=== PATIENT | female | born 1950 | race Caucasian/White ===

== ENCOUNTER → 2017-01-04 | Outpatient (CLI) | payer MEDICARE ==
--- NOTE | 2017-01-04 18:11 | CT ---
EXAMINATION TYPE: CT angio chest DATE OF EXAM: 01/04/2017 6:02 PM COMPARISON: NONE HISTORY: sob, pneumonia X 6 weeks, elevated d-dimer CT DLP: 544.0 mGycm Automated exposure control for dose reduction was used. CONTRAST: CTA scan of the thorax is performed with IV Contrast, patient injected with 60 mL of Visipaque 320, p ulmonary embolism protocol. There are 3-D post processed images.. FINDINGS: The lungs are clear of consolidation. There is no pleural effusion. There is no pericardial effusion. Heart size is normal. There is no sign of aortic aneurysm or dissection. There is no mediastinal vaishnavi nopathy. There are no hilar masses. I see no filling defects in the pulmonary arteries. There is mild subsegmental patchy atelectasis in both lungs. There is no evidence of a pulmonary mass. There is thoracic kyphotic deformity with anter ior spurring in the midthoracic spine. IMPRESSION: NO EVIDENCE OF PULMONARY EMBOLISM. SPONDYLOTIC CHANGES IN THE THORACIC SPINE. PATCHY BILATERAL SUBSEGMENTAL ATELECTASIS IN THE LUNGS. THERE are two 2.5 CM HYPODENSE AREAS IN THE ANTERIOR LEFT LOBE OF THE LIVER. THIS IS CONSISTENT WITH CYSTS AND APPEAR SMALLER THAN THE OLD CT SCAN OF 05/07/2011.
== END ==
LOC: RADCTMAIN 17:03
PROVIDERS: ATTEND Family Medicine
DX: R79.1 Abnormal coagulation profile (principal); M47.894 Other spondylosis, thoracic region; K76.89 Other specified diseases of liver
CPT/HCPCS: 71275; Q9967

== ENCOUNTER → 2017-01-26 | Outpatient (CLI) | payer MEDICARE ==
[~2017-01-26] MED LIST: DOBUTamine DRIP for NUC MED 500 MG in DEXTROSE/WATER 1 250ML.BAG IV ONE
--- NOTE | 2017-01-26 11:27 | ECHOS ---
DATE OF SERVICE: 01/26/2017 AGE: 66Y SEX: F HT: 65 WT: 205 lbs. Protocol Brian: Others: Dobutamine Stress Echo Stage: Dur. of Exercise: *Heart Rate Blood Pressure *Rest: 84 Rest: 112/48 * *Max. Achieved: 139 Maximum BP: 218/53 85% PMHR: 131 100% PMHR: 154 *METS: INDICATIONS: Chest pain. MEDICATIONS: Baseline EKG revealed a normal sinus rhythm without significant ST-T changes. With dobutamine administration as per protocol, the heart rate went up to 139 beats, but by the time the echo was obtained, the heart rate came back to 124 beats per minute. However, at the heart rate of 139 beats per minute, patient did not have any angina. There was no arrhythmia. EKG did not reveal any ST segment changes to indicate ischemia. By EKG criteria, this is an unremarkable dobutamine stress test. Baseline echo images reveal normal wall motion and wall thickening of all segments. With dobutamine administration as per protocol, there was progressive increase in left ventricular wall motion and wall thickening of all segments suggesting that there is no evidence of any stress-induced ischemia on this study. However, by the time echo images were obtained, heart rate was less than 85% of predicted maximal rate was around 124 beats per minute. FINAL IMPRESSION: 1. By EKG criteria, this is an unremarkable dobutamine stress test without any evidence of ischemia by EKG criteria. 2. Normal dobutamine stress echocardiogram. By the time, however, images were obtained, heart rate was less than 85%. However, there is no ischemia at the above-mentioned stress level.
== END | disposition home or self-care (01) ==
LOC: RADNMMAIN 09:15
PROVIDERS: ATTEND Family Medicine
DX: R94.31 Abnormal electrocardiogram [ECG] [EKG] (principal)
CPT/HCPCS: 93017; 93350; J1250

== ENCOUNTER → 2017-10-04 | Outpatient (CLI) | payer MEDICARE ==
--- NOTE | 2017-10-04 16:22 | US ---
EXAMINATION TYPE: US renals and bladder DATE OF EXAM: 10/04/2017 COMPARISON: CT CLINICAL HISTORY: R94.4 Abnormal renal function test. Abnormal labs EXAM MEASUREMENTS: Right Kidney: 12.1 x 5.3 x 5.7 cm Left Kidney: 10.8 x 5.5 x 4.9 cm Right Kidney: No evidence of hydro, Cyst lateral= 8.3 x 6.3 x 8.2 cm Left Kidney: Cortical thinning, cyst lateral= 2.8 x 3.0 x 3.0 cm Bladder: wnl Bilateral Jets seen: No There is no evidence for hydronephrosis at this point in time. No nephrolithiasis is seen. No solid masses are identified. The urinary bladder is anechoic. Bilateral ureteral jets are seen. IMPRESSION: 1. Renal parenchymal thinning. 2. Simple renal cysts noted bilaterally.
[2017-10-04 17:04] LABS: Basophils % (A) 0 %; Eosinophils # (A) 0.3 k/uL (0-0.7); Eosinophils % (A) 3 %; HGB 12.1 gm/dL (11.4-16.0); Lymphocytes # (A) 2.4 k/uL (1.0-4.8); Lymphocytes % (A) 25 %; MCH 28.7 pg (25.0-35.0); MCHC 31.9 g/dL (31.0-37.0); Mean Platelet Volume 6.6; Monocytes # (A) 0.4 k/uL (0-1.0); Monocytes % (A) 4 %; Neutrophils # (A) 6.3 k/uL (1.3-7.7); Neutrophils % (A) 66 %; Platelet Count 244 k/uL (150-450); RBC 4.22 m/uL (3.80-5.40); RDW 13.3 % (11.5-15.5); WBC 9.5 k/uL (3.8-10.6)
[2017-10-04 17:15] LABS: Appearance,Urine Clear (Clear); Bilirubin,Urine Negative (Negative); Blood,Urine Negative (Negative); Color,Urine Colorless; Glucose,Urine (UA) Negative (Negative); Ketones,Urine Negative (Negative); Leukocyte Esterase,Urine Negative (Negative); Nitrite,Urine Negative (Negative); Protein,Urine Negative (Negative); Specific Gravity,Urine 1.003 (1.001-1.035); Urobilinogen,Urine <2.0 mg/dL (<2.0)
== END | disposition home or self-care (01) ==
LOC: RADUSMAIN 15:52
PROVIDERS: ATTEND Family Medicine
DX: N28.1 Cyst of kidney, acquired (principal); R93.429 Abnormal radiologic findings on diagnostic imaging of unspecified kidney
CPT/HCPCS: 36415; 76770; 81003; 84100; 85025

== ENCOUNTER → 2017-10-28 | Outpatient (CLI) | payer MEDICARE ==
[2017-10-28 12:25] LABS: Basophils # (A) 0.1 k/uL (0-0.2); Basophils % (A) 0 %; Eosinophils # (A) 0.4 k/uL (0-0.7); Eosinophils % (A) 4 %; HCT 38.3 % (34.0-46.0); HGB 11.7 gm/dL (11.4-16.0); Hypochromasia Slight; Lymphocytes # (A) 2.2 k/uL (1.0-4.8); Lymphocytes % (A) 21 %; MCH 27.9 pg (25.0-35.0); MCHC 30.6 g/dL (31.0-37.0); MCV 91.4 fL (80.0-100.0); Mean Platelet Volume 6.7; Monocytes # (A) 0.4 k/uL (0-1.0); Monocytes % (A) 4 %; Neutrophils # (A) 7.5 k/uL (1.3-7.7); Neutrophils % (A) 70 %; Platelet Count 325 k/uL (150-450); RBC 4.19 m/uL (3.80-5.40); RDW 13.5 % (11.5-15.5); WBC 10.7 k/uL (3.8-10.6)
[2017-10-28 12:29] LABS: Appearance,Urine Clear (Clear); Bilirubin,Urine Negative (Negative); Blood,Urine Negative (Negative); Color,Urine Yellow; Glucose,Urine (UA) Negative (Negative); Ketones,Urine Negative (Negative); Leukocyte Esterase,Urine Moderate (Negative); Mucus,Urine Rare /hpf; Nitrite,Urine Negative (Negative); Protein,Urine Negative (Negative); Specific Gravity,Urine 1.015 (1.001-1.035); Squamous Epithelial Cell,Urine 1 /hpf (0-4); Urobilinogen,Urine <2.0 mg/dL (<2.0); WBC,Urine 10 /hpf (0-5)
[2017-10-28 12:49] LABS: Phosphorus 3.8 mg/dL (2.5-4.5); Potassium 4.9 mmol/L (3.5-5.1); Uric Acid 6.6 mg/dL (3.7-7.4)
[2017-10-28 14:06] LABS: Albumin 4.1 g/dL (3.5-5.0)
[2017-10-28 18:46] LABS: Iron Saturation 15.32 (12.00-45.00); Protein, Total 7.1 g/dL (6.2-8.2)
[2017-10-28 18:55] LABS: Vitamin D 25 Hydroxy 43.1 ng/mL (30.0-100.0)
[2017-10-28 20:41] LABS: Parathyroid Hormone Intact 126.9 pg/mL (14.0-72.0)
== END | disposition home or self-care (01) ==
LOC: LABWHC1 11:44
PROVIDERS: ATTEND Internal Medicine Nephrology
DX: N18.3 Chronic kidney disease, stage 3 (moderate) (principal); D64.9 Anemia, unspecified; E55.9 Vitamin D deficiency, unspecified; E21.3 Hyperparathyroidism, unspecified; M10.9 Gout, unspecified; N39.0 Urinary tract infection, site not specified
CPT/HCPCS: 36415; 80048; 81001; 82040; 82306; 82728; 83540; 83550; 83735; 83970; 84100; 84165; 84550; 85025; 86335

== ENCOUNTER → 2018-01-25 | Outpatient (CLI) | payer MEDICARE ==
[2018-01-25 13:39] LABS: Appearance,Urine Clear (Clear); Bilirubin,Urine Negative (Negative); Blood,Urine Negative (Negative); Color,Urine Yellow; Glucose,Urine (UA) Negative (Negative); Ketones,Urine Negative (Negative); Leukocyte Esterase,Urine Moderate (Negative); Mucus,Urine Rare /hpf; Nitrite,Urine Negative (Negative); Protein,Urine Negative (Negative); RBC,Urine 2 /hpf (0-5); Specific Gravity,Urine 1.018 (1.001-1.035); Squamous Epithelial Cell,Urine 1 /hpf (0-4); Urobilinogen,Urine <2.0 mg/dL (<2.0); WBC,Urine 25 /hpf (0-5)
[2018-01-25 13:40] LABS: Basophils % (A) 1 %; Eosinophils # (A) 0.4 k/uL (0-0.7); Eosinophils % (A) 4 %; HCT 36.4 % (34.0-46.0); HGB 11.6 gm/dL (11.4-16.0); Lymphocytes # (A) 2.2 k/uL (1.0-4.8); Lymphocytes % (A) 25 %; MCH 27.9 pg (25.0-35.0); MCV 87.3 fL (80.0-100.0); Mean Platelet Volume 6.7; Monocytes # (A) 0.3 k/uL (0-1.0); Monocytes % (A) 4 %; Neutrophils # (A) 5.6 k/uL (1.3-7.7); Neutrophils % (A) 64 %; Platelet Count 252 k/uL (150-450); RBC 4.17 m/uL (3.80-5.40); WBC 8.8 k/uL (3.8-10.6)
[2018-01-25 13:53] LABS: Calcium 9.7 mg/dL (8.4-10.2); Potassium 4.7 mmol/L (3.5-5.1); Uric Acid 6.9 mg/dL (3.7-7.4)
[2018-01-25 18:32] LABS: Iron Saturation 11.34 (12.00-45.00)
[2018-01-25 18:40] LABS: Vitamin D 25 Hydroxy 46.7 ng/mL (30.0-100.0)
[2018-01-25 19:22] LABS: Parathyroid Hormone Intact 112.8 pg/mL (14.0-72.0)
== END | disposition home or self-care (01) ==
LOC: LABWHC1 13:03
PROVIDERS: ATTEND Nurse Practitioner Family
DX: E55.9 Vitamin D deficiency, unspecified (principal); M10.9 Gout, unspecified; D63.1 Anemia in chronic kidney disease; N18.3 Chronic kidney disease, stage 3 (moderate)
CPT/HCPCS: 36415; 80048; 81001; 82306; 82728; 83540; 83550; 83970; 84550; 85025

== ENCOUNTER → 2018-02-24 | Outpatient (CLI) | payer MEDICARE ==
[2018-02-24 11:34] LABS: Basophils % (A) 0 %; Eosinophils # (A) 0.5 k/uL (0-0.7); Eosinophils % (A) 5 %; HGB 12.6 gm/dL (11.4-16.0); Lymphocytes # (A) 2.3 k/uL (1.0-4.8); Lymphocytes % (A) 23 %; MCH 27.3 pg (25.0-35.0); MCHC 31.5 g/dL (31.0-37.0); MCV 86.7 fL (80.0-100.0); Mean Platelet Volume 6.7; Monocytes # (A) 0.4 k/uL (0-1.0); Monocytes % (A) 4 %; Neutrophils # (A) 6.5 k/uL (1.3-7.7); Neutrophils % (A) 67 %; Platelet Count 277 k/uL (150-450); RBC 4.61 m/uL (3.80-5.40); RDW 14.8 % (11.5-15.5); WBC 9.8 k/uL (3.8-10.6)
[2018-02-24 11:51] LABS: Albumin 4.1 g/dL (3.5-5.0); Bilirubin, Delta 0.3 mg/dL (0.0-0.2); Calcium 9.9 mg/dL (8.4-10.2); Potassium 4.7 mmol/L (3.5-5.1); Total Bilirubin 0.3 mg/dL (0.2-1.3); Total Protein 7.1 g/dL (6.3-8.2)
[2018-02-24 12:08] LABS: T4, Free (Free Thyroxine) 1.34 ng/dL (0.78-2.19)
== END | disposition home or self-care (01) ==
LOC: LABWHC1 10:53
PROVIDERS: ATTEND Nurse Practitioner Family
DX: E11.9 Type 2 diabetes mellitus without complications (principal); E03.9 Hypothyroidism, unspecified; E78.2 Mixed hyperlipidemia; N18.3 Chronic kidney disease, stage 3 (moderate); I12.9 Hypertensive chronic kidney disease with stage 1 through stage 4 chronic kidney disease, or unspecified chronic kidney disease
CPT/HCPCS: 36415; 80048; 80061; 80076; 84439; 84443; 85025

== ENCOUNTER → 2018-04-19 | Outpatient (CLI) | payer MEDICARE ==
--- NOTE | 2018-04-21 10:34 | MM ---
Reason for exam: screening (asymptomatic). Last mammogram was performed 1 year and 7 months ago. History: Patient is postmenopausal and had first child after 30. Family history of breast cancer in maternal grandmother at age 82. Took hormonal contraceptives for 13 years beginning at age 20. Took estrogen for 16 years 3 months beginning at age 42. Took progesterone for 16 years 3 months beginning at age 42. Physical Findings: A clinical breast exam by your physician is recommended on an annual basis and results should be correlated with mammographic findings. MG 3D Screening Mammo W/Cad Bilateral CC and MLO view(s) were taken. Prior study comparison: September 18, 2016, bilateral MG 3d screening mammo w/cad. September 16, 2015, bilateral MG 3d screening mammo w/cad. There are scattered fibroglandular densities. Benign appearing round bilateral calcifications. There is no discrete abnormality. ASSESSMENT: Benign, BI-RAD 2 RECOMMENDATION: Routine screening mammogram of both breasts in 1 year.
== END | disposition home or self-care (01) ==
LOC: RADMAMWWP 11:02
PROVIDERS: ATTEND Family Medicine
DX: Z12.31 Encounter for screening mammogram for malignant neoplasm of breast (principal)
CPT/HCPCS: 77063; 77067

== ENCOUNTER → 2018-04-27 | Outpatient (CLI) | payer MEDICARE ==
[2018-04-27 14:37] LABS: Appearance,Urine Clear (Clear); Bacteria,Urine Rare /hpf; Bilirubin,Urine Negative (Negative); Blood,Urine Negative (Negative); Color,Urine Yellow; Glucose,Urine (UA) Negative (Negative); Ketones,Urine Negative (Negative); Leukocyte Esterase,Urine Small (Negative); Mucus,Urine Rare /hpf; Nitrite,Urine Negative (Negative); PH, Urine 5.5 (5.0-8.0); Protein,Urine Negative (Negative); Specific Gravity,Urine 1.017 (1.001-1.035); Squamous Epithelial Cell,Urine <1 /hpf (0-4); Urobilinogen,Urine <2.0 mg/dL (<2.0); WBC,Urine 6 /hpf (0-5)
[2018-04-27 14:44] LABS: Basophils % (A) 0 %; Eosinophils # (A) 0.3 k/uL (0-0.7); Eosinophils % (A) 4 %; HCT 41.5 % (34.0-46.0); HGB 13.1 gm/dL (11.4-16.0); Lymphocytes # (A) 2.2 k/uL (1.0-4.8); Lymphocytes % (A) 24 %; MCH 28.9 pg (25.0-35.0); MCHC 31.6 g/dL (31.0-37.0); MCV 91.5 fL (80.0-100.0); Mean Platelet Volume 6.8; Monocytes # (A) 0.3 k/uL (0-1.0); Monocytes % (A) 3 %; Neutrophils % (A) 67 %; Platelet Count 265 k/uL (150-450); RBC 4.54 m/uL (3.80-5.40); RDW 14.5 % (11.5-15.5); WBC 8.9 k/uL (3.8-10.6)
[2018-04-27 15:09] LABS: Calcium 9.7 mg/dL (8.4-10.2); Potassium 4.2 mmol/L (3.5-5.1); Uric Acid 6.6 mg/dL (3.7-7.4)
[2018-04-27 19:13] LABS: Iron Saturation 24.15 (12.00-45.00)
[2018-04-27 19:21] LABS: Vitamin D 25 Hydroxy 54.4 ng/mL (30.0-100.0)
[2018-04-27 20:46] LABS: Parathyroid Hormone Intact 91.5 pg/mL (14.0-72.0)
== END | disposition home or self-care (01) ==
LOC: LABWHC1 13:30
PROVIDERS: ATTEND Nurse Practitioner Family
DX: N18.3 Chronic kidney disease, stage 3 (moderate) (principal); D63.1 Anemia in chronic kidney disease; E55.9 Vitamin D deficiency, unspecified; N25.81 Secondary hyperparathyroidism of renal origin; M10.9 Gout, unspecified; N39.0 Urinary tract infection, site not specified
CPT/HCPCS: 36415; 80048; 81001; 82306; 82728; 83540; 83550; 83970; 84550; 85025

== ENCOUNTER → 2018-06-08 | Outpatient (CLI) | payer MEDICARE ==
--- NOTE | 2018-06-08 11:20 | CT ---
EXAMINATION TYPE: CT abdomen pelvis wo con DATE OF EXAM: 06/08/2018 HISTORY: Left lower quadrant pain CT DLP: 1062 mGycm. Automated Exposure Control for Dose Reduction was Utilized. TECHNIQUE: CT scan of the abdomen and pelvis is performed without oral or IV contrast. COMPARISON: CT abdomen May 07, 2011 FINDINGS: Within the limitations of a non-contrast study, the following observations are made. LUNG BASES: Trace pericardial effusion anteriorly inferiorly is redemonstrated. LIVER/GB: Liver is heterogeneously hypodense consistent with diffuse fatty infiltration. A few simple appearing thin-walled cyst in the left hepatic lobe are redemonstrated. PANCREAS: No significant abnormality is seen. SPLEEN: No significant abnormality is seen. ADRENALS: Slight thickening to left adrenal gland which may reflect benign hyperplasia is unchanged f rom prior study. KIDNEYS: There is cortical thinning in both kidneys with a few scattered simple appearing cysts bilat erally. There is a dominant 7.6 cm simple appearing cyst right kidney mid pole level redemonstrated i ncreased in size from prior. BOWEL: Low-lying cecum into right pelvis is present. Normal-appearing appendix is seen from cecum. No suspicious small or large bowel dilatation. A few colonic diverticula are present. There is no CT ev idence for acute diverticulitis. Evaluation slightly suboptimal secondary to lack of enteric contrast . There is poorly distended left and sigmoid colon making evaluation at this level suboptimal. Stable small hiatal hernia is noted. GENITAL ORGANS: Uterus is surgically absent or markedly atrophic LYMPH NODES: No greater than 1cm abdominal or pelvic lymph nodes are appreciated. OSSEOUS STRUCTURES: Multilevel facet arthropathy mid to lower lumbar spine is present. There is moder ate to advanced disc space narrowing and vacuum disc phenomenon at lumbosacral junction. There is mul tilevel disc space narrowing and spurring in the mid to lower thoracic spine. OTHER: Stable small fat-containing umbilical hernia is present. IMPRESSION: No CT evidence for acute diverticulitis. No suspicious acute finding is seen to account f or patient's symptoms. Results communicated to ordering physician assistant teacher primary office via telephone at time of dictation.
== END ==
LOC: RADCTMAIN 10:14
PROVIDERS: ATTEND Nurse Practitioner Adult Health
DX: K57.90 Diverticulosis of intestine, part unspecified, without perforation or abscess without bleeding (principal)
CPT/HCPCS: 74176

== ENCOUNTER → 2018-07-26 | Outpatient (CLI) | payer MEDICARE ==
[2018-07-26 12:55] LABS: Basophils % (A) 0 %; Eosinophils # (A) 0.3 k/uL (0-0.7); Eosinophils % (A) 4 %; HCT 41.4 % (34.0-46.0); HGB 13.1 gm/dL (11.4-16.0); Lymphocytes # (A) 1.7 k/uL (1.0-4.8); Lymphocytes % (A) 22 %; MCH 28.5 pg (25.0-35.0); MCHC 31.6 g/dL (31.0-37.0); MCV 90.4 fL (80.0-100.0); Mean Platelet Volume 6.5; Monocytes # (A) 0.3 k/uL (0-1.0); Monocytes % (A) 4 %; Neutrophils # (A) 5.3 k/uL (1.3-7.7); Neutrophils % (A) 69 %; Platelet Count 241 k/uL (150-450); RBC 4.58 m/uL (3.80-5.40); RDW 13.3 % (11.5-15.5); WBC 7.7 k/uL (3.8-10.6)
[2018-07-26 13:15] LABS: Appearance,Urine Clear (Clear); Bilirubin,Urine Negative (Negative); Blood,Urine Negative (Negative); Color,Urine Light Yellow; Glucose,Urine (UA) Negative (Negative); Ketones,Urine Negative (Negative); Leukocyte Esterase,Urine Trace (Negative); Nitrite,Urine Negative (Negative); PH, Urine 6.5 (5.0-8.0); Protein,Urine Negative (Negative); RBC,Urine <1 /hpf (0-5); Specific Gravity,Urine 1.009 (1.001-1.035); Squamous Epithelial Cell,Urine 1 /hpf (0-4); Urobilinogen,Urine <2.0 mg/dL (<2.0)
[2018-07-26 18:54] LABS: Iron Saturation 27.69 (12.00-45.00)
[2018-07-26 19:03] LABS: Vitamin D 25 Hydroxy 47.4 ng/mL (30.0-100.0)
[2018-07-26 20:53] LABS: Parathyroid Hormone Intact 86.9 pg/mL (14.0-72.0)
[2018-07-26 21:38] LABS: Anion Gap 11.2 mmol/L (4.00-12.00); Calcium 9.4 mg/dL (8.7-10.3); Carbon Dioxide 24.8 mmol/L (21.6-31.8); LDL Cholesterol,Calculated 85.2 mg/dL (0.0-131.0); Potassium 4.4 mmol/L (3.5-5.5); VLDL Calculation 28.8 mg/dL (5.00-40.00)
== END | disposition home or self-care (01) ==
LOC: LABWHC1 10:55
PROVIDERS: ATTEND Nurse Practitioner Family
DX: N18.3 Chronic kidney disease, stage 3 (moderate) (principal); D64.9 Anemia, unspecified; E55.9 Vitamin D deficiency, unspecified; N25.81 Secondary hyperparathyroidism of renal origin; M10.9 Gout, unspecified; N39.0 Urinary tract infection, site not specified; E78.5 Hyperlipidemia, unspecified
CPT/HCPCS: 36415; 80048; 80061; 81001; 82306; 82728; 83540; 83550; 83970; 84550; 85025

== ENCOUNTER → 2019-10-04 | Outpatient (CLI) | payer MEDICARE ==
[2019-10-04 11:22] LABS: Basophils % (A) 0 %; Eosinophils # (A) 0.3 k/uL (0-0.7); Eosinophils % (A) 4 %; HCT 40.2 % (34.0-46.0); HGB 13.1 gm/dL (11.4-16.0); Lymphocytes # (A) 1.2 k/uL (1.0-4.8); Lymphocytes % (A) 16 %; MCH 29.9 pg (25.0-35.0); MCHC 32.7 g/dL (31.0-37.0); MCV 91.5 fL (80.0-100.0); Mean Platelet Volume 6.9; Monocytes # (A) 0.3 k/uL (0-1.0); Monocytes % (A) 3 %; Neutrophils # (A) 5.5 k/uL (1.3-7.7); Neutrophils % (A) 75 %; Platelet Count 253 k/uL (150-450); RBC 4.39 m/uL (3.80-5.40); RDW 12.9 % (11.5-15.5); WBC 7.3 k/uL (3.8-10.6)
[2019-10-04 13:25] LABS: Albumin 4.1 g/dL (3.5-5.0); Calcium 9.6 mg/dL (8.4-10.2); Potassium 4.9 mmol/L (3.5-5.1); Total Bilirubin 0.5 mg/dL (0.2-1.3); Total Protein 6.9 g/dL (6.3-8.2)
[2019-10-04 13:42] LABS: T4, Free (Free Thyroxine) 1.41 ng/dL (0.78-2.19)
[2019-10-04 17:56] LABS: Hemoglobin A1C 5.8 % (4.0-6.0)
--- NOTE | 2019-10-05 14:27 | MM ---
Reason for exam: screening (asymptomatic). Last mammogram was performed 1 year and 5 months ago. History: Patient is postmenopausal and had first child after 30. Family history of breast cancer in maternal grandmother at age 82. Took hormonal contraceptives for 13 years beginning at age 20. Took estrogen for 16 years 3 months beginning at age 42. Took progesterone for 16 years 3 months beginning at age 42. Physical Findings: A clinical breast exam by your physician is recommended on an annual basis and results should be correlated with mammographic findings. MG 3D Screening Mammo W/Cad Bilateral CC and MLO view(s) were taken. XCCL view(s) were taken of the right breast. Prior study comparison: April 19, 2018, bilateral MG 3d screening mammo w/cad. September 18, 2016, bilateral MG 3d screening mammo w/cad. There are scattered fibroglandular densities. No suspicious abnormality. No significant changes when compared with prior studies. ASSESSMENT: Negative, BI-RAD 1 RECOMMENDATION: Routine screening mammogram of both breasts in 1 year.
== END | disposition home or self-care (01) ==
LOC: RADMAMWWP 09:54
PROVIDERS: ATTEND Nurse Practitioner Adult Health
DX: Z12.31 Encounter for screening mammogram for malignant neoplasm of breast (principal); I10 Essential (primary) hypertension; E03.9 Hypothyroidism, unspecified; M25.50 Pain in unspecified joint
CPT/HCPCS: 77063; 77067; 80053; 80061; 83036; 84439; 84443; 84481; 85025; 85652; 86140

== ENCOUNTER → 2020-11-14 | Outpatient (CLI) | payer MEDICARE ==
--- NOTE | 2020-11-15 13:58 | MM ---
Reason for exam: screening (asymptomatic). Last mammogram was performed 1 year and 1 month ago. History: Patient is postmenopausal and had first child after 30. Family history of breast cancer in maternal grandmother at age 82. Took hormonal contraceptives for 13 years beginning at age 20. Took estrogen for 16 years 3 months beginning at age 42. Took progesterone for 16 years 3 months beginning at age 42. Physical Findings: A clinical breast exam by your physician is recommended on an annual basis and results should be correlated with mammographic findings. MG 3D Screening Mammo W/Cad Bilateral CC and MLO view(s) were taken. Prior study comparison: October 04, 2019, bilateral MG 3d screening mammo w/cad. April 19, 2018, bilateral MG 3d screening mammo w/cad. There are scattered fibroglandular densities. There is no discrete abnormality. No significant changes when compared with prior studies. ASSESSMENT: Negative, BI-RAD 1 RECOMMENDATION: Routine screening mammogram of both breasts in 1 year.
== END | disposition home or self-care (01) ==
LOC: RADMAMWWP 10:49
PROVIDERS: ATTEND Family Medicine
DX: Z12.31 Encounter for screening mammogram for malignant neoplasm of breast (principal)
CPT/HCPCS: 77063; 77067

== ENCOUNTER → 2021-12-02 | Outpatient (CLI) | payer MEDICARE ==
--- NOTE | 2021-12-02 12:04 | CT ---
EXAMINATION TYPE: CT brain wo con DATE OF EXAM: 12/02/2021 COMPARISON: None HISTORY: [id number] female R41.0, Acute confusion TECHNIQUE: Examination was done in axial plane without intravenous contrast. Coronal and sagittal r econstructions performed. CT DLP: 981.7 mGycm Automated exposure control for dose reduction was used. FINDINGS: There is no evidence of acute intracranial hemorrhage, acute ischemic changes, mass, mass-effect, or extra-axial fluid collection. There is no effacement of cerebral sulci or basal subarachnoid cister ns. There is no hydrocephalus. There is no midline shift. Padilla-white matter distinction is preserv ed. Mild patchy periventricular white matter hypodensity. Paranasal sinuses and mastoid air cells well pneumatized. Orbits and globes are intact. IMPRESSION: No acute intracranial abnormality seen. A mild patchy changes of chronic small vessel ischemic diseas e.
[2021-12-02 12:49] LABS: Basophils % (A) 0 %; Eosinophils # (A) 0.1 k/uL (0-0.7); Eosinophils % (A) 1 %; HCT 44.2 % (34.0-46.0); Lymphocytes # (A) 0.9 k/uL (1.0-4.8); Lymphocytes % (A) 9 %; MCH 30.4 pg (25.0-35.0); MCHC 31.6 g/dL (31.0-37.0); MCV 96.2 fL (80.0-100.0); Mean Platelet Volume 7.2; Monocytes # (A) 0.3 k/uL (0-1.0); Monocytes % (A) 4 %; Neutrophils # (A) 8.4 k/uL (1.3-7.7); Neutrophils % (A) 86 %; Platelet Count 209 k/uL (150-450); RBC 4.59 m/uL (3.80-5.40); RDW 13.4 % (11.5-15.5); WBC 9.8 k/uL (3.8-10.6)
[2021-12-02 13:11] LABS: ALT 21 U/L (4-34); AST 28 U/L (14-36); African American GFR (CKD) 46 (>60 ml/min/1.73 sqM); Albumin 4.1 g/dL (3.5-5.0); Albumin/Globulin Ratio 1.3; Alkaline Phosphatase 111 U/L (38-126); Anion Gap 6 mmol/L; Blood Urea Nitrogen 26 mg/dL (7-17); Calcium 9.6 mg/dL (8.4-10.2); Carbon Dioxide 26 mmol/L (22-30); Chloride 106 mmol/L (98-107); Globulin 3.1 g/dL; Glucose 113 mg/dL (74-99); Non-African American GFR(CKD) 40 (>60 ml/min/1.73 sqM); Potassium 4.2 mmol/L (3.5-5.1); Sodium 138 mmol/L (137-145); Total Bilirubin 0.5 mg/dL (0.2-1.3); Total Protein 7.2 g/dL (6.3-8.2)
[2021-12-02 13:32] LABS: Creatine Kinase MB 1.6 ng/mL (0.0-2.4); Troponin I <0.012 ng/mL (0.000-0.034)
== END | disposition home or self-care (01) ==
LOC: RADCTMAIN 11:33
PROVIDERS: ATTEND Family Medicine
DX: R41.0 Disorientation, unspecified (principal); R06.00 Dyspnea, unspecified; N25.81 Secondary hyperparathyroidism of renal origin; E03.9 Hypothyroidism, unspecified
CPT/HCPCS: 70450; 80053; 82553; 83036; 83880; 84439; 84443; 84484; 85025; 85379

== ENCOUNTER → 2021-12-11 | Outpatient (CLI) | payer MEDICARE ==
--- NOTE | 2021-12-11 10:28 | MR ---
EXAMINATION TYPE: MR brain wo/w con DATE OF EXAM: 12/11/2021 COMPARISON: 12/02/2021 CT brain HISTORY: other dissociative conversion disorders, memory loss TECHNIQUE: Multiplanar, multisequence images of the brain and brainstem is performed without and with IV contras t, utilizing 10 mL intravenous Gadavist . FINDINGS: Exam limited by motion artifact. Diffusion weighted images demonstrate no evidence of a recent infarct or other diffusion abnormality. There is no confluent and now multiple focal areas of abnormal signal the white matter which are no nspecific. Most likely in the bases remote ischemia. Faint areas of abnormal signal seen in the chaka are suggestive of remote ischemia. Mild generalized degenerative change. No enhancing mass or mass effect. No midline shift. Orbits are symmetric. Mild changes of chronic ethmoidal sinusitis. Craniocervical junction maintaine d. Sella turcica has a normal appearance. Midline structures demonstrate normal morphology. Post con trast images demonstrate no abnormal enhancement. The dural venous sinuses appear patent. The visuali zed sinuses are clear and the globes are intact. IMPRESSION: 1. Degenerative and nonspecific white matter changes most typical of remote ischemia. 2. faint abnormal signal the chaka suggestive of tiny areas of remote ischemia
== END | disposition home or self-care (01) ==
LOC: RADMRIMAIN 07:19
PROVIDERS: ATTEND Nurse Practitioner Adult Health
DX: F44.89 Other dissociative and conversion disorders (principal)
CPT/HCPCS: 70553; A9585

== ENCOUNTER → 2022-07-08 | Outpatient (CLI) | payer MEDICARE ==
--- NOTE | 2022-07-09 07:42 | MM ---
Reason for Exam: Screening (asymptomatic). Last mammogram was performed 1 year(s) and 8 month(s) ago. Patient History: Menarche at age 11. Patient has no children. Left ovary removed at age 42. Right ovary removed at age 42. Hysterectomy at age 42. Postmenopausal. Estrogen, starting at age 42 for 16 years, 3 months. Progesterone, starting at age 42 for 16 years, 3 months. Hormonal Contraceptives for 13 years from age 20 until age 32. Maternal grandmother had breast cancer, age 82. Risk Values: Kathie 5 year model risk: 2.1%. NCI Lifetime model risk: 5.6%. Prior Study Comparison: 04/19/2018 Bilateral Screening Mammogram, [facility]. 10/04/2019 Bilateral Screening Mammogram, [facility]. 11/14/2020 Bilateral Screening Mammogram, [facility]. Tissue Density: There are scattered fibroglandular densities. Findings: Analyzed By CAD. A few small scattered benign-appearing round and linear calcifications bilaterally are redemonstrated. Benign-appearing right axillary lymph nodes are again seen. There is no suspicious new group of microcalcifications or new suspicious mass in either breast. Overall Assessment: Benign, BI-RAD 2 Management: Screening Mammogram of both breasts in 1 year. A clinical breast exam by your physician is recommended on an annual basis and results should be correlated with mammographic findings. Electronically signed and approved by: Niels Sumner M.D.
--- NOTE | 2022-07-09 07:42 | MM ---
Reason for Exam: Screening (asymptomatic). Last mammogram was performed 1 year(s) and 8 month(s) ago. Patient History: Menarche at age 11. Patient has no children. Left ovary removed at age 42. Right ovary removed at age 42. Hysterectomy at age 42. Postmenopausal. Estrogen, starting at age 42 for 16 years, 3 months. Progesterone, starting at age 42 for 16 years, 3 months. Hormonal Contraceptives for 13 years from age 20 until age 32. Maternal grandmother had breast cancer, age 82. Risk Values: Kathie 5 year model risk: 2.1%. NCI Lifetime model risk: 5.6%. Prior Study Comparison: 04/19/2018 Bilateral Screening Mammogram, [facility]. 10/04/2019 Bilateral Screening Mammogram, [facility]. 11/14/2020 Bilateral Screening Mammogram, [facility]. Tissue Density: There are scattered fibroglandular densities. Findings: Analyzed By CAD. A few small scattered benign-appearing round and linear calcifications bilaterally are redemonstrated. Benign-appearing right axillary lymph nodes are again seen. There is no suspicious new group of microcalcifications or new suspicious mass in either breast. Overall Assessment: Benign, BI-RAD 2 Management: Screening Mammogram of both breasts in 1 year. A clinical breast exam by your physician is recommended on an annual basis and results should be correlated with mammographic findings. Electronically signed and approved by: Niels Sumner M.D.
== END | disposition home or self-care (01) ==
LOC: RADMAMWWP 10:59
PROVIDERS: ATTEND Family Medicine
DX: Z12.31 Encounter for screening mammogram for malignant neoplasm of breast (principal)
CPT/HCPCS: 77063; 77067

== ENCOUNTER → 2023-07-09 | Outpatient (CLI) | payer MEDICARE ==
--- NOTE | 2023-07-12 09:00 | MM ---
Reason for Exam: Screening (asymptomatic). Last screening mammogram was performed 12 month(s) ago. Patient History: Menarche at age 11. Patient has no children. Left ovary removed at age 42. Right ovary removed at age 42. Hysterectomy at age 42. Postmenopausal. Estrogen, starting at age 42 for 16 years, 3 months. Progesterone, starting at age 42 for 16 years, 3 months. Hormonal Contraceptives for 13 years from age 20 until age 32. Maternal grandmother had breast cancer, age 82. Risk Values: Kathie 5 year model risk: 2.2%. NCI Lifetime model risk: 5.3%. Prior Study Comparison: 10/04/2019 Bilateral Screening Mammogram, [facility]. 11/14/2020 Bilateral Screening Mammogram, [facility]. 07/08/2022 Bilateral MG 3D screening mammo w/cad, [facility]. Tissue Density: There are scattered fibroglandular densities. Findings: Analyzed By CAD. There is no suspicious group of microcalcifications or new suspicious mass. Benign-appearing calcifications bilaterally. Overall Assessment: Benign, BI-RAD 2 Management: Screening Mammogram of both breasts in [address] [facility] will attempt to contact patient to return for supplemental views and ultrasound if indicated. Patient should continue monthly self-breast exams. A clinical breast exam by your physician is recommended on an annual basis. This exam should not preclude additional follow-up of suspicious palpable abnormalities. Note on Kathie scores and lifetime risk: 1. A Kathie score greater than 3% is considered moderate risk. If this is the case, consider specialist referral to assess eligibility for a risk reducing agent. 2. If overall lifetime risk for the development of breast cancer is 20% or higher, the patient may qualify for future screening with alternating mammogram and breast MRI. Electronically signed and approved by: Jaylen Krishnamurthy DO
== END | disposition home or self-care (01) ==
LOC: RADMAMWWP 11:30
PROVIDERS: ATTEND Family Medicine
DX: Z12.31 Encounter for screening mammogram for malignant neoplasm of breast (principal); Z78.0 Asymptomatic menopausal state; Z80.3 Family history of malignant neoplasm of breast
CPT/HCPCS: 77063; 77067

== ENCOUNTER 2024-05-02 19:06 | Emergency (ER) | payer MEDICARE ==
--- NOTE | 2024-06-04 12:08 | US ---
Site ID [facility] Patient Palmira Flores ID [id number] Age/Gender: 73Y, F Order # N/A Procedure US venous doppler duplex LE RT Date 05/02/2024 8:48:00 PM EXAMINATION TYPE: US venous doppler duplex LE RT DATE OF EXAM: 05/16/2024 11:30 PM COMPARISON: NONE CLINICAL INDICATION: Female, 73 year old with history of right lower extremity ecchymosis, fall SIDE PERFORMED: Right TECHNIQUE: The lower extremity deep venous system is examined utilizing real time linear array sonog audrey with graded compression, doppler sonography and color-flow sonography. VESSELS IMAGED: Common Femoral Vein Deep Femoral Vein Greater Saphenous Vein * Femoral Vein Popliteal Vein Small Saphenous Vein * Proximal Calf Veins (* superficial vessels) Grayscale, color doppler, spectral doppler imaging performed of the deep veins of the right lower ext remity. There is normal flow, compressibility, vascular waveforms. Anechoic fluid collection seen w ithin the popliteal fossa measuring 7.1 x 2.1 x 4.2 cm without internal color flow. Right Leg: Negative for DVT IMPRESSION: 1. No ultrasound evidence for right lower extremity deep venous thrombosis. 2. Popliteal fossa cyst.
== END 2024-05-02 21:58 | disposition home or self-care (01) ==
LOC: EC 19:06
DX: R58 Hemorrhage, not elsewhere classified (principal)
CPT/HCPCS: 99283

== ENCOUNTER 2024-06-21 11:45 | Emergency (ER) | payer MEDICARE ==
--- NOTE | 2024-06-21 12:01 | ED ---
Back Pain HPI - General Source: patient, EMS, RN notes reviewed Mode of arrival: ambulatory Limitations: no limitations <Criss Mccord - Last Filed: 06/21/24 12:46> - General Source: patient, RN notes reviewed, old records reviewed <Morgan Solano - Last Filed: 06/21/24 15:55> - General Chief Complaint: Back Pain/Injury Stated Complaint: Fall-back pain Time Seen by Provider: 06/21/24 11:55 - History of Present Illness Initial Comments: Quick Note: This is a 74-year-old female who presents to the emergency department for a fall. States that she fell this morning and injured her back. She fell because she lost her balance, which has happened to her before. States that she is in physical therapy to try to get this managed. Currently has pain over the right lower back. Denies hitting her head or any loss of consciousness. Not taking any blood thinners. Denies sustaining any other injuries. (Criss Mccord) Patient is a 74-year-old female who presents emergency department after a fall. Patient fell at approximately 4:30 AM this morning. Landed on the ground on her right buttock. Has pain along the lower back as well as paraspinal muscles near the right buttock. Denies hitting her head or any other injuries. Is not on blood thinners. Denies loss conscious. Has been ambulatory since it is just painful. He has chronic decreased range of motion of the right hip secondary to arthritis. Presents for further evaluation at this time over concern of possible injury to her back. Patient is on blood pressure medications but did not take them this morning. Urgently seen as a quick note. I evaluated patient when she was placed in room 30.Patient denies any lower extremity paralysis, denies bowel or bladder incontinence or retention, and denies saddle paresthesias. (Morgan Solano) - Related Data Home Medications Medication Instructions Recorded Confirmed Cetirizine HCl [Zyrtec] 10 mg PO DAILY 09/01/16 02/16/18 Diphenoxylate HCl/Atropine 2 tab PO BID PRN 09/01/16 02/16/18 [Lomotil] Levothyroxine Sodium [Synthroid] 100 mcg PO DAILY 09/01/16 02/16/18 Losartan/Hydrochlorothiazide 1 tab PO DAILY 09/01/16 02/16/18 [Losartan-Hctz 100-25 mg Tab] amLODIPine [Norvasc] 5 mg PO DAILY 09/01/16 02/16/18 traMADol HCL [Ultram] 50 - 100 mg PO Q4HR PRN 09/01/16 02/16/18 Previous Rx's Medication Instructions Recorded Lidocaine 5% Patch [Lidoderm 5% 1 patch TOPICAL DAILY PRN 14 Days 06/21/24 Patch] #14 patch Allergies Allergy/AdvReac Type Severity Reaction Status Date / Time amoxicillin Allergy Unknown Verified 06/21/24 11:54 lisinopril Allergy Unknown Verified 06/21/24 11:54 Sulfa (Sulfonamide Allergy Unknown Verified 06/21/24 11:54 Antibiotics) Tetracyclines Allergy Unknown Verified 06/21/24 11:54 Review of Systems ROS Other: All systems not noted in ROS Statement are negative. <Criss Mccord - Last Filed: 06/21/24 12:46> ROS Other: All systems not noted in ROS Statement are negative. <Morgan Solano - Last Filed: 06/21/24 15:55> ROS Statement: Those systems with pertinent positive or pertinent negative responses have been documented in the HPI. Review of Systems: CONST: Denies fever EYES: Denies blurry vision ENT: Denies nasal congestion C/V: Denies Chest pain RESP: Denies shortness of breath GI: Denies abdominal pain : Denies dysuria SKIN: Denies rash. MSK: Endorses back pain NEURO: Denies headache (Morgan Solano) Past Medical History Past Medical History: Hypertension, Osteoarthritis (OA), Thyroid Disorder History of Any Multi-Drug Resistant Organisms: None Reported Past Surgical History: Hysterectomy, Joint Replacement Additional Past Surgical History / Comment(s): left knee replacement Past Psychological History: Depression Past Alcohol Use History: None Reported Past Drug Use History: None Reported <Criss Mccord - Last Filed: 06/21/24 12:46> General Exam Limitations: no limitations <Criss Mccord - Last Filed: 06/21/24 12:46> <Morgan Solano - Last Filed: 06/21/24 15:55> - General Exam Comments Initial Comments: Visual Physical Exam Vital signs reviewed General: Well-appearing, nontoxic, no acute distress. Head: Normocephalic, atraumatic Eyes: PERRLA, EOMI ENT: Airway patent Chest: Nonlabored breathing Skin: No visual rash, normal skin tone Neuro: Alert and oriented 3 Musculoskeletal: No gross abnormalities (Criss Mccord) General: Appears in mild distress secondary to back pain. HEAD: Normal with no signs of head trauma. EYES: EOMI. Pupils 2 mm and equal bilaterally. ENT: Hearing grossly intact, normal oropharynx. RESPIRATORY: No respiratory distress. C/V: Regular rate and rhythm. Peripheral pulses 2+ intact throughout. ABD: Abd is soft, nontender, nondistended EXT: Normal range of motion for the patient. No obvious deformity. Pelvis is stable. Tenderness to palpation in the midline lower lumbar spine with some right sided paraspinal muscle tenderness to palpation as well. No thoracic or cervical spine tenderness to palpation. SKIN: No rashes or lesions observed on exposed skin. NEURO: Alert and oriented x 4. Cranial nerves II-XII intact. No focal sensory or strength deficits. GCS of 15. (Morgan Solano) Course Vital Signs 06/21/24 06/21/24 06/21/24 11:52 14:15 14:54 Temperature 97.8 F 98 F 98 F Pulse Rate 85 88 92 Respiratory 20 18 18 Rate Blood Pressure 212/99 209/119 186/118 O2 Sat by Pulse 98 100 98 Oximetry 06/21/24 15:47 Temperature 98.2 F Pulse Rate 85 Respiratory 18 Rate Blood Pressure 178/113 O2 Sat by Pulse 97 Oximetry Medical Decision Making <Criss Mccord - Last Filed: 06/21/24 12:46> <Morgan Solano - Last Filed: 06/21/24 15:55> - Medical Decision Making I performed the QuickNote portion of this chart. Signed Criss Mccrod PA-C. (Criss Mccord) Was pt. sent in by a medical professional or institution ([facility], [employer], urgent care, hospital, or retirement...) When possible be specific @ -No Did you speak to anyone other than the patient for history (EMS, parent, family, police, friend...)? What history was obtained from this source @ -No Did you review nursing and triage notes (agree or disagree)? Why? @ -I reviewed and agree with nursing and triage notes Were old charts reviewed (outside hosp., previous admission, EMS record, old EKG, old radiological studies, urgent care reports/EKG's, retirement records)? Report findings @ -Reviewed patient's prescription history and patient is on Norvasc 5 mg which she did not have in her bag. This will be ordered for her. Differential Diagnosis (chest pain, altered mental status, abdominal pain women, abdominal pain men, vaginal bleeding, weakness, fever, dyspnea, syncope, headache, dizziness, GI bleed, back pain, seizure, CVA, palpatations, mental health, musculoskeletal)? @ -Fall, muscle strain, lumbar spine fracture, pelvis injury, poorly controlled hypertension. This list is not all inclusive. EKG interpreted by me (3pts min.). @ -None done X-rays interpreted by me (1pt min.). @ -Lumbar spine x-ray negative for any obvious acute traumatic injury. Degenerative changes present. Grade 1 anterolisthesis present at L5. CT interpreted by me (1pt min.). @ -None done U/S interpreted by me (1pt. min.). @ -None done What testing was considered but not performed or refused? (CT, X-rays, U/S, labs)? Why? @ -None What meds were considered but not given or refused? Why? @ -None Did you discuss the management of the patient with other professionals (professionals i.e. , PA, [employer], lab, RT, psych nurse, social insurance analyst, vp talent management, teacher, accounting officer, pillowcase cleaner)? Give summary @ -No Was smoking cessation discussed for >3mins.? @ -No Was critical care preformed (if so, how long)? @ -No Were there social determinants of health that impacted care today? How? (Homelessness, low income, unemployed, alcoholism, drug addiction, transportation, low edu. Level, literacy, decrease access to med. care, [facility], rehab)? @ -No Was there de-escalation of care discussed even if they declined (Discuss DNR or withdrawal of care, Hospice)? DNR status @ -No What co-morbidities impacted this encounter? (DM, HTN, Smoking, COPD, CAD, Cancer, CVA, ARF, Chemo, Hep., AIDS, mental health diagnosis, sleep apnea, morbid obesity)? @ -None Was patient admitted / discharged? Hospital course, mention meds given and route, prescriptions, significant lab abnormalities, going to OR and other pertinent info. @ -Based on the patient's presentation and physical exam, presents emergency department complaining of back pain after a fall earlier this morning. Originally seen as a quick note. X-ray obtained which revealed no obvious acute fracture but patient does have grade 1 anterior listhesis at L5. Patient did not take her antihypertensive medications this morning and was hypertensive in triage. Patient will take her home dose of losartan and is asking for a dose of her Norvasc as she does not have the pill bottle with her. She also be given analgesia medication and lidocaine patch. We will reevaluate. She was in agreement this plan. No red flag symptoms to suggest cauda equina at this time. Patient's blood pressure improved following antihypertensive medications and pain meds. Discussed with the patient is as she is asymptomatic in terms of her hypertension she will like to go home which I believe is reasonable as she is downtrending and her blood pressure we have observed her for multiple hours. She will be discharged home with a starter pack of Tylenol 3's and a prescription for lidocaine patches. Recommended follow-up with her PCP. She was in agreement this plan. I instructed the patient to follow up with their PCP in the next 1-3 days. I explained that the patient should return to the emergency department if they experience any worsening symptoms. Strict return precautions were discussed with the patient. The patient expressed understanding of these instructions. I answered all questions that the patient had. The patient was discharged home in good condition with their prescriptions and follow up information. Undiagnosed new problem with uncertain prognosis? @ -No Drug Therapy requiring intensive monitoring for toxicity (Heparin, Nitro, Insulin, Cardizem)? @ -No Were any procedures done? @ -No Diagnosis/symptom? @ -Fall, back pain, hypertension Acute, or Chronic, or Acute on Chronic? @ -Acute Uncomplicated (without systemic symptoms) or Complicated (systemic symptoms)? @ -Uncomplicated Side effects of treatment? @ -None Exacerbation, Progression, or Severe Exacerbation] @ -No Poses a threat to life or bodily function? @ -Unlikely (Morgan Solano) Disposition <Criss Mccord - Last Filed: 06/21/24 12:46> Is patient prescribed a controlled substance at d/c from ED?: No Time of Disposition: 15:49 <Morgan Solano - Last Filed: 06/21/24 15:55> Clinical Impression: Fall, Back pain, Hypertension Disposition: HOME SELF-CARE Condition: Good Instructions (If sedation given, give patient instructions): Acute Low Back Pain (ED) Prescriptions: Lidocaine 5% Patch [Lidoderm 5% Patch] 1 patch TOPICAL DAILY PRN 14 Days #14 patch PRN Reason: Pain Referrals: Kike Galicia MD [Primary Care Provider] - 1-2 days
--- NOTE | 2024-06-21 12:36 | XR ---
EXAMINATION TYPE: XR lumbar spine 2 or 3V DATE OF EXAM: 06/21/2024 CLINICAL HISTORY: pain TECHNIQUE: Three views of the lumbar spine are submitted. COMPARISON: None. FINDINGS: There are 5 lumbar type vertebral bodies identified. The lumbar spine shows satisfactory alignment w ithout evidence of acute fracture or dislocation. Vertebral body heights are within normal limits. Severe degenerative disc space narrowing at L5-S1. Grade 1 anterolisthesis L4 and L5 measuring 7 mm. Severe facet joint arthropathy. The overlying soft tissue appears unremarkable. IMPRESSION: No acute fracture is seen in the lumbar spine. ICD 10 NO FRACTURE, INITIAL EVALUATION [facility], , 06/21/2024 12:33 PM
[2024-06-21] MEDS: HYDROcodone/APAP 5-325MG 1 EACH TAB PO STA (14:08)
[2024-06-21] MEDS: LIDOCAINE 4% PATCH TOPICAL STA (14:08)
[2024-06-21] MEDS: amLODIPine 5 MG TAB PO STA (14:09)
[2024-06-21 14:16] VITALS: RESP 18
[2024-06-21] MEDS: KETOROLAC 15 MG/ML 1 ML VIAL IM STA (15:11)
[2024-06-21 15:50] VITALS: BP 178/113; PULSE 85; TEMP 98.2
[2024-06-21] MEDS: ACET/COD 300 MG/30 MG STARTER PACK 6 TAB BTL PO STA (15:53)
== END 2024-06-21 16:01 | disposition home or self-care (01) ==
LOC: EC 11:45
DX: M54.9 Dorsalgia, unspecified (principal); I10 Essential (primary) hypertension; Z88.0 Allergy status to penicillin; Z88.1 Allergy status to other antibiotic agents; Z88.2 Allergy status to sulfonamides; Z88.8 Allergy status to other drugs, medicaments and biological substances; W19.XXXA Unspecified fall, initial encounter
CPT/HCPCS: 72100; 99284; 96372; J1885